=== PATIENT | female | born 1965 | race American Indian/Alaskan Native ===

== ENCOUNTER 2019-07-29 09:24 | Emergency (ER) | payer MEDICAID ==
[2019-07-29] MEDS ORDERED: amLODIPine 5 MG TAB PO ONE (10:30)
[2019-07-29] MEDS ORDERED: ONDANSETRON 4 MG/2 ML INJ IV ONE (10:31)
[2019-07-29] MEDS ORDERED: HYDROmorphone 1 MG/1 ML INJ IV ONE (10:31)
[2019-07-29] MEDS ORDERED: SODIUM CHLORIDE 0.9% 1000 ML 1,000 ML IV ONE (10:32)
--- NOTE | 2019-07-29 10:50 | Emergency Department Report ---
HPI - General Chief Complaint: Back Pain/Injury Time Seen by Provider: 07/29/19 10:16 - HPI HPI: 53-year-old female presents to the emergency department with a complaint of a 2 day history of abdominal, flank and back pain. It is affecting the left side of her abdomen, flank and back, and just the back of her right side. This is also associated with some nausea without vomiting. She denies any fever, dysuria, vaginal bleeding, vaginal discharge, constipation, diarrhea. The patient says that she was brought back into her primary care physician's office about 4 or 5 days ago secondary to some abnormal labs that she says involved her thyroid and her kidneys. The patient is concerned as she says that she had some type of a kidney injury or issue when she was a child required inpatient admission for 3-4 days down in [place]. Patient has a past history of fibromyalgia, osteoarthritis, asthma, hypertension and chronic pain syndrome. The patient has been taking her morphine and Percocet for her symptoms without any relief. ED Past Medical Hx - Past Medical History Hx Hypertension: Yes Hx Renal Disease: Yes (ARF- resolved) Hx Arthritis: Yes (,RA) Hx Asthma: Yes Additional medical history: drug induced constipation, generalized chronic pain - Surgical History Additional Surgical History: x2,breast reduction, carpel tunnel x2,endometriosis - Social History Smoking Status: Never Smoker Substance Use Type: None - Medications Home Medications: Home Medications Medication Instructions Recorded Confirmed Last Taken Type Butalb/Acetamin/Caff 50-325-40 1 tab PO Q6HR PRN #20 tab 07/24/18 Unknown Rx [Fioricet] Meloxicam 15 mg PO DAILY #30 tablet 07/24/18 Unknown Rx Oxycodone HCl/Acetaminophen 4 mg PO BID 07/24/18 07/24/18 Unknown History [Percocet 10/325 mg] tiZANidine [Zanaflex 4mg TAB] 4 mg PO TID #30 tablet 07/24/18 Unknown Rx ED Review of Systems ROS: Stated complaint: FLANK PAIN Other details as noted in HPI Comment: All other systems reviewed and negative Constitutional: denies: chills, fever Eyes: denies: eye pain, vision change ENT: denies: ear pain, throat pain Respiratory: denies: cough, shortness of breath Cardiovascular: denies: chest pain, palpitations Gastrointestinal: abdominal pain, nausea. denies: vomiting, diarrhea, consti pation Genitourinary: denies: dysuria, discharge Musculoskeletal: back pain. denies: arthralgia Skin: denies: rash, lesions Neurological: denies: headache, weakness ED Medical Decision Making - Lab Data Result diagrams: 07/29/19 10:48 07/29/19 10:48 Critical care attestation.: If time is entered above; I have spent that time in minutes in the direct care of this critically ill patient, excluding procedure time. ED Disposition Clinical Impression: Flank pain Ovarian cyst Qualifiers: Laterality: left Qualified Code(s): N83.202 - Unspecified ovarian cyst, left side Abdominal pain Qualifiers: Abdominal location: unspecified location Qualified Code(s): R10.9 - Unspecified abdominal pain Disposition: TO HOME OR SELFCARE Is pt being admited?: No Condition: Stable Instructions: Ovarian Cyst (ED), Flank Pain (ED), Abdominal Pain (ED) Additional Instructions: Please follow-up with your primary care physician and pain physician. I'm giving you a referral for a few local [facility] groups to follow up regarding your ovarian cyst(s). Return to the emergency Department with any worsening of your symptoms or any acute distress. Referrals: PRIMARY CARE [Primary Care Provider] - 3-5 Days [facility] [Provider Group] - 3-5 Days [facility] [Provider Group] - 3-5 Days Time of Disposition: 14:36
[2019-07-29 11:25] LABS: Basophils % (Auto) 0.5 % (0.0-1.8); Eosinophils # (Auto) 0.1 K/mm3 (0.0-0.4); Eosinophils % (Auto) 1.1 % (0.0-4.3); Hemoglobin 13.1 gm/dl (10.1-14.3); Lymphocytes # (Auto) 3.3 K/mm3 (1.2-5.4); Lymphocytes % (Auto) 46.1 % (13.4-35.0); Mean Corpuscular HGB Conc 35 % (30-34); Mean Corpuscular Volume 85 fl (79-97); Monocytes # (Auto) 0.7 K/mm3 (0.0-0.8); Monocytes % (Auto) 9.8 % (0.0-7.3); Platelet Count 255 K/mm3 (140-440); Red Blood Count 4.45 M/mm3 (3.65-5.03)
[2019-07-29 11:48] LABS: Alanine Aminotransferase 14 units/L (7-56); Albumin 4.2 g/dL (3.9-5); BUN/Creatinine Ratio 19; Blood Urea Nitrogen 19 mg/dL (7-17); Calcium 9.8 mg/dL (8.4-10.2); Hemolysis Index 4
[2019-07-29 11:52] LABS: Free T4 (Free Thyroxine) 1.05 ng/dL (0.76-1.46)
[2019-07-29 12:21] LABS: Bacteria,Urine 1+ /HPF (Negative); Bilirubin,Urine NEG (Negative); Blood,Urine NEG (Negative); Color,Urine Yellow (Yellow); Mucus,Urine FEW /HPF; Protein,Urine <15 mg/dL mg/dL (Negative); Urobilinogen,Urine < 2.0 mg/dL (<2.0); WBC,Urine < 1.0 /HPF (0.0-6.0)
[2019-07-29 12:55] VITALS: BP 112/72
--- NOTE | 2019-07-29 14:26 | Cat Scan Report ---
CT abdomen pelvis w con INDICATION: abd pain, flank pain. TECHNIQUE: All CT scans at this location are performed using the following dose modulation technique: Automated exposure control. CONTRAST: Omnipaque 300, 100 cc IV injection. COMPARISON: None available. CT abdomen: The parenchymal organs are unremarkable in appearance. Negative for abdominal mass, fluid or inflammation. The bowel is not dilated or thickened. CT PELVIS: The appendix is normal. Negative for suspicious pelvic mass, fluid or inflammation. Status post previous hysterectomy. The left ovary contains appears to be a large septated cyst or sev eral adjacent cysts. The maximal AP diameter is 6 cm. IMPRESSION: 1. Negative for obstruction or localized inflammation. 2. Large septated cyst versus multiple adjacent cysts left adnexa. This could be better evaluated wit h ultrasound as clinically indicated. Signer Name: Ferny Magallon MD Signed: 07/29/2019 2:21 PM Workstation Name: [id number]
== END 2019-07-29 15:40 | disposition home or self-care (01) ==
LOC: ED 09:24
DX: N83.202 Unspecified ovarian cyst, left side (principal); I10 Essential (primary) hypertension; M06.9 Rheumatoid arthritis, unspecified; J45.909 Unspecified asthma, uncomplicated; Z79.899 Other long term (current) drug therapy; Z88.0 Allergy status to penicillin; Z88.2 Allergy status to sulfonamides
CPT/HCPCS: 36415; 74177; 80053; 81001; 83690; 84439; 84443; 85025; 96374; 99285; J1170; J2405; J7030; Q9967